=== PATIENT | female | born 1965 | race American Indian/Alaskan Native ===

== ENCOUNTER 2017-06-07 17:33 | Emergency (ER) | payer OTHER ==
[2017-06-07 17:39] VITALS: BMI 24.7
[2017-06-07 17:42] VITALS: BP 119/81; PULSE 65; TEMP 98.5
[2017-06-07] MEDS ORDERED: Amoxicillin-Clav 875-125 mg Tab PO STA (18:07)
--- NOTE | 2017-06-07 18:18 | ED PDOC ---
Arrival/HPI - General Chief Complaint: ENT Problem Time Seen by Provider: 06/07/17 18:06 Historian: Patient - History of Present Illness Narrative History of Present Illness (Text): 06/07/17 19:59 51-year-old female presents today with a 5 day history of left-sided earache sinus congestion and left-sided frontal headache and nasal congestion. Patient states she tried to go the urgent care center today but they stated that they did not have a doctor on staff so they sent her to the emergency room. Patient complaining of pressure sensation to the floor had greatest on the left side with sinus congestion. Patient states that she's been taking Nasonex without improvement. Patient states this happens to her every year. Patient denies headache or dizziness. No chest pain or shortness of breath. Patient complaining of subjective fever. No other complaints Time/Duration: Other (5 days) Past Medical History - Provider Review Nursing Documentation Reviewed: Yes - Travel History Have you recently traveled outside [place] w/in the past 3 mons?: No - Infectious Disease Hx of Infectious Diseases: None - Tetanus Immunization Tetanus Immunization: Unknown - Past Medical History Past Medical History: No Previous - Cardiac Hx Cardiac Disorders: No - Pulmonary Hx Respiratory Disorders: Yes Hx Asthma: Yes - Neurological Hx Neurological Disorder: No - HEENT Hx HEENT Disorder: No - Renal Hx Renal Disorder: No - Endocrine/Metabolic Hx Endocrine Disorders: No - Hematological/Oncological Hx Blood Disorders: No - Integumentary Hx Dermatological Disorder: No - Musculoskeletal/Rheumatological Hx Musculoskeletal Disorders: No - Gastrointestinal Hx Gastrointestinal Disorders: No - Genitourinary/Gynecological Hx Genitourinary Disorders: No - Psychiatric Hx Psychophysiologic Disorder: No Hx Depression: No Hx Emotional Abuse: No Hx Physical Abuse: No Hx Substance Use: No - Past Surgical History Past Surgical History: No Previous - Surgical History Hx Abdominal Aortic Aneurysm Repair: No Hx Amputation: No Hx Angiogram: No Hx Angioplasty: No Hx Appendectomy: No Hx Arteriovenous Shunt: No Hx Arthroscopy: No Hx Bile Duct Stent: No Hx Breast Biopsy: No Hx Cataract Extraction: No Hx Cardiac Catheterization: No Hx Carotid Endarterectomy: No Hx Section: No Hx Cholecystectomy: No Hx Coronary Artery Bypass Graft: No Hx Coronary Stent: No Hx Dilation and Curettage: No Hx Eye Surgery: No Hx Femoral-Popliteal Bypass Graft: No Hx Gastric Bypass Surgery: No Hx Hysterectomy: No Hx Joint Replacement: No Hx Kidney Transplant: No Hx Liver Transplant: No Hx Mastectomy: No Hx Musculoskeletal Surgery: No Hx Open Heart Surgery: No Hx Open Reduction Internal Fixation: No Hx Orthopedic Surgery: No Hx Parathyroidectomy: No Hx Penile Implant: No Hx Pulmonary Surgery: No Hx Splenectomy: No Hx Thyroidectomy: No Hx Tonsillectomy: No Hx Tubal Ligation: No Hx Valve Replacement: No Hx Vascular Surgery: No Hx Vascular Access Device: No - Anesthesia Hx Anesthesia: No - Suicidal Assessment Feels Threatened In Home Enviroment: No Family/Social History - Physician Review Nursing Documentation Reviewed: Yes Family/Social History: Unknown Family HX Smoking Status: Never Smoked Hx Alcohol Use: No Hx Substance Use: No Allergies/Home Meds Allergies/Adverse Reactions: Allergies Iodine and Iodide Containing Produc Allergy (Verified 07/21/16 17:10) ANAPHYLAXIS peanut Allergy (Verified 07/21/16 17:10) ANAPHYLAXIS strawberry Allergy (Verified 07/21/16 17:10) ANAPHYLAXIS seafood Allergy (Uncoded 07/21/16 17:10) ANAPHYLAXIS Home Medications: Home Meds Medication Instructions Recorded Confirmed Albuterol Sulfate [Proventil Hfa] 1 inh INH PRN PRN 02/17/16 06/07/17 Review of Systems - Review of Systems Constitutional: Fevers. absent: Fatigue ENT: Sore Throat, Sinus Congestion Respiratory: absent: SOB, Cough Cardiovascular: absent: Chest Pain, Palpitations Gastrointestinal: absent: Abdominal Pain, Nausea, Vomiting Musculoskeletal: absent: Arthralgias, Back Pain, Neck Pain Neurological: Headache (left sided frontal headache). absent: Dizziness Physical Exam Vital Signs Reviewed: Yes Vital Signs Temp Pulse Resp BP Pulse Ox 06/07/17 18:21 19 99 06/07/17 17:42 98.5 F 65 18 119/81 98 Temperature: Afebrile Blood Pressure: Normal Pulse: Regular Respiratory Rate: Normal Appearance: Positive for: Well-Appearing, Non-Toxic, Comfortable Pain Distress: None Mental Status: Positive for: Alert and Oriented X 3 - Systems Exam Head: Present: Atraumatic, Tenderness (+ ttp over left frontal sinus) Conjunctiva: Present: Normal Ears: Present: Other (left ear; + cerumen impaction) Mouth: Present: Moist Mucous Membranes Pharnyx: Present: Normal. No: ERYTHEMA, EXUDATE, TONSILS ENLARGED Nose (External): Present: Atraumatic Nose (Internal): Present: Engorged, Clear Mucous Neck: Present: Normal Range of Motion, Trachea Midline. No: Meningeal Signs Respiratory/Chest: Present: Clear to Auscultation, Good Air Exchange. No: Respiratory Distress, Accessory Muscle Use Cardiovascular: Present: Regular Rate and Rhythm, Normal S1, S2. No: Murmurs Neurological: Present: GCS=15 Skin: Present: Warm, Dry, Normal Color. No: Rashes Psychiatric: Present: Alert, Oriented x 3 Medical Decision Making ED Course and Treatment: 06/07/17 20:01 Patient is nontoxic well appearing in no distress. Vital signs are stable Augmentin by mouth will treat patient with augmentin for sinusitis; pt to f/u with ENT specialist. I advised follow up with primary care physician within the next 2 days, advised to increase fluids take medications as prescribed and return if symptoms worsen persist or if new symptoms develop Patient verbalizes understanding of discharge instructions and need for immediate followup. IMPRESSION; sinusitis Motrin every 6 hours as needed for pain/fever reduction Increase fluids Augmentin 1 tablet twice daily 10 days Continue Nasonex as prescribed. Follow up primary care physician within the next 2 days Follow up with the ENT specialist within the next 2 days. Return if symptoms worsen persist or if the symptoms develop - Medication Orders Current Medication Orders: Discontinued Medications Amoxicillin/Clavulanate Potassium (Augmentin 875 Mg-125 Mg Tab) 1 tab PO STAT STA PRN Reason: Protocol Stop: 06/07/17 18:08 Last Admin: 06/07/17 18:20 Dose: 1 tab Disposition/Present on Arrival - Present on Arrival Any Indicators Present on Arrival: No History of DVT/PE: No History of Uncontrolled Diabetes: No Urinary Catheter: No History of Decub. Ulcer: No History Surgical Site Infection Following: None - Disposition Have Diagnosis and Disposition been Completed?: Yes Diagnosis: Sinusitis Disposition: HOME/ ROUTINE Disposition Time: 18:07 Patient Plan: Discharge Condition: GOOD Discharge Instructions (ExitCare): Sinusitis (ED) Additional Instructions: Motrin every 6 hours as needed for pain/fever reduction Increase fluids Augmentin 1 tablet twice daily 10 days Continue Nasonex as prescribed. Follow up primary care physician within the next 2 days Follow up with the ENT specialist within the next 2 days. Return if symptoms worsen persist or if the symptoms develop Prescriptions: Amoxicillin/Clavulanate [Augmentin 875 MG-125 MG] 1 tab PO BID #20 tab Referrals: Jose F Ledezma DO [[facility]] - Follow up with primary Po Mccormick DO [Primary Care Provider] - Follow up with primary Forms: [employer] (Maori)
[2017-06-07 18:21] VITALS: RESP 19; O2SAT 99
== END 2017-06-07 18:21 | disposition home or self-care (01) ==
LOC: ED 17:33
DX: J32.9 Chronic sinusitis, unspecified (principal)

== ENCOUNTER 2017-06-28 17:25 | Emergency (ER) | payer OTHER ==
[2017-06-28 17:25] VITALS: BMI 24.7
[2017-06-28 17:34] VITALS: TEMP 98.9; O2SAT 100
--- NOTE | 2017-06-28 18:24 | ED PDOC ---
Arrival/HPI - General Chief Complaint: Headache Time Seen by Provider: 06/28/17 17:39 Historian: Patient - History of Present Illness Narrative History of Present Illness (Text): 06/28/17 18:26 A 51 year old female, whose past medical history includes asthma, presents to the emergency department complaining of headache for the past 5 days after she was at the grocery store and hit her forehead on a "bread box." Denies any loss of consciousness. Patient reports to taking Motrin and applying ice to forehead , but headache still persists. Notes she feels pressure near her eyes. Symptoms feel similar to previous sinusitis symptoms. Notes some dizziness but denies any neck pain or any other complaints at this time. PMD: Dr. Mccormick Time/Duration: < week Symptom Onset: Sudden Symptom Course: Unchanged Activities at Onset: Rest Past Medical History - Provider Review Nursing Documentation Reviewed: Yes - Infectious Disease Hx of Infectious Diseases: None - Tetanus Immunization Tetanus Immunization: Unknown - Reproductive Menopause: Yes - Past Medical History Past Medical History: No Previous - Cardiac Hx Cardiac Disorders: No - Pulmonary Hx Respiratory Disorders: Yes Hx Asthma: Yes - Neurological Hx Neurological Disorder: No - HEENT Hx HEENT Disorder: No - Renal Hx Renal Disorder: No - Endocrine/Metabolic Hx Endocrine Disorders: No - Hematological/Oncological Hx Blood Disorders: No - Integumentary Hx Dermatological Disorder: No - Musculoskeletal/Rheumatological Hx Musculoskeletal Disorders: No - Gastrointestinal Hx Gastrointestinal Disorders: No - Genitourinary/Gynecological Hx Genitourinary Disorders: No - Psychiatric Hx Psychophysiologic Disorder: No Hx Depression: No Hx Emotional Abuse: No Hx Physical Abuse: No Hx Substance Use: No - Past Surgical History Past Surgical History: No Previous - Surgical History Hx Abdominal Aortic Aneurysm Repair: No Hx Amputation: No Hx Angiogram: No Hx Angioplasty: No Hx Appendectomy: No Hx Arteriovenous Shunt: No Hx Arthroscopy: No Hx Bile Duct Stent: No Hx Breast Biopsy: No Hx Cataract Extraction: No Hx Cardiac Catheterization: No Hx Carotid Endarterectomy: No Hx Section: No Hx Cholecystectomy: No Hx Coronary Artery Bypass Graft: No Hx Coronary Stent: No Hx Dilation and Curettage: No Hx Eye Surgery: No Hx Femoral-Popliteal Bypass Graft: No Hx Gastric Bypass Surgery: No Hx Hysterectomy: No Hx Joint Replacement: No Hx Kidney Transplant: No Hx Liver Transplant: No Hx Mastectomy: No Hx Musculoskeletal Surgery: No Hx Open Heart Surgery: No Hx Open Reduction Internal Fixation: No Hx Orthopedic Surgery: No Hx Parathyroidectomy: No Hx Penile Implant: No Hx Pulmonary Surgery: No Hx Splenectomy: No Hx Thyroidectomy: No Hx Tonsillectomy: No Hx Tubal Ligation: No Hx Valve Replacement: No Hx Vascular Surgery: No Hx Vascular Access Device: No - Anesthesia Hx Anesthesia: No - Suicidal Assessment Feels Threatened In Home Enviroment: No Family/Social History - Physician Review Nursing Documentation Reviewed: Yes Family/Social History: Other (non-contributory) Smoking Status: Never Smoked Hx Alcohol Use: No Hx Substance Use: No Allergies/Home Meds Allergies/Adverse Reactions: Allergies Iodine and Iodide Containing Produc Allergy (Verified 07/21/16 17:10) ANAPHYLAXIS peanut Allergy (Verified 07/21/16 17:10) ANAPHYLAXIS strawberry Allergy (Verified 07/21/16 17:10) ANAPHYLAXIS seafood Allergy (Uncoded 07/21/16 17:10) ANAPHYLAXIS Home Medications: Home Meds Medication Instructions Recorded Confirmed Albuterol Sulfate [Proventil Hfa] 1 inh INH PRN PRN 02/17/16 06/28/17 Review of Systems - Physician Review All systems were reviewed & negative as marked: Yes - Review of Systems Musculoskeletal: absent: Neck Pain Neurological: Headache Physical Exam Vital Signs Reviewed: Yes Vital Signs Temp Pulse Resp BP Pulse Ox 06/28/17 19:10 77 17 116/72 100 06/28/17 17:33 98.9 F 88 16 140/62 100 Appearance: Positive for: Well-Appearing, Non-Toxic, Comfortable Pain Distress: None Mental Status: Positive for: Alert and Oriented X 3 - Systems Exam Head: Present: Normocephalic, Tenderness (over forehead) Pupils: Present: PERRL Extroacular Muscles: Present: EOMI Conjunctiva: Present: Normal Mouth: Present: Moist Mucous Membranes Neck: Present: Normal Range of Motion. No: MIDLINE TENDERNESS, Paraspinal Tenderness Respiratory/Chest: Present: Clear to Auscultation, Good Air Exchange. No: Respiratory Distress, Accessory Muscle Use Cardiovascular: Present: Regular Rate and Rhythm, Normal S1, S2. No: Murmurs Abdomen: Present: Normal Bowel Sounds. No: Tenderness, Distention, Peritoneal Signs Back: Present: Normal Inspection Upper Extremity: Present: Normal Inspection. No: Cyanosis, Edema Lower Extremity: Present: Normal Inspection. No: Edema Neurological: Present: GCS=15, CN II-XII Intact, Speech Normal, Normal Cerebellar Funct, Other (strength and sensations intact) Skin: Present: Warm, Dry, Normal Color. No: Rashes Psychiatric: Present: Alert, Oriented x 3, Normal Insight, Normal Concentration Medical Decision Making ED Course and Treatment: 06/28/17 18:31 CT HEAD WITHOUT CONTRAST Creator : Jenny Olvera MD FINDINGS: Streak artifact obscures evaluation of the skullbase. HEMORRHAGE: No intracranial hemorrhage. BRAIN: No mass effect or edema. Alatorre-white matter differentiation appears intact. Please note that MRI with diffusion imaging is more sensitive in the detection of acute ischemic event. VENTRICLES: No hydrocephalus. CALVARIUM: Unremarkable. PARANASAL SINUSES: Unremarkable as visualized. No significant inflammatory changes. MASTOID AIR CELLS: Unremarkable as visualized. No inflammatory changes. IMPRESSION: No acute intracranial pathology identified. Disc results w pt as well as plan for f/u and rtr. - RAD Interpretation Radiology Orders: 06/28/17 17:45 HEAD W/O CONTRAST [CT] Stat - Medication Orders Current Medication Orders: Discontinued Medications Acetaminophen (Tylenol 325mg Tab) 975 mg PO STAT STA Stop: 06/28/17 17:45 Last Admin: 06/28/17 17:54 Dose: 975 mg MAR Pain/Vitals Document 06/28/17 17:54 [facility] (Rec: 06/28/17 17:54 [facility] [id number]) Pain Reassessment Is This A Pain ReAssessment? No Sleep Is patient sleeping during reassessment? No Presence of Pain Presence of Pain Yes Pain Scale Used Pain Scale Used Numeric Location Pain Location Body Diet Assistant Description Constant Intensity 5 Scale Used Numeric Ibuprofen (Motrin Tab) 400 mg PO STAT STA Stop: 06/28/17 17:45 Last Admin: 06/28/17 17:55 Dose: - Scribe Statement The provider has reviewed the documentation as recorded by the Rudy Edgar Provider Scribe Attestation: All medical record entries made by the Scribe were at my direction and personally dictated by me. I have reviewed the chart and agree that the record accurately reflects my personal performance of the history, physical exam, medical decision making, and the department course for this patient. I have also personally directed, reviewed, and agree with the discharge instructions and disposition. Disposition/Present on Arrival - Present on Arrival Any Indicators Present on Arrival: No History of DVT/PE: No History of Uncontrolled Diabetes: No Urinary Catheter: No History of Decub. Ulcer: No History Surgical Site Infection Following: None - Disposition Have Diagnosis and Disposition been Completed?: Yes Diagnosis: Head contusion Disposition: HOME/ ROUTINE Disposition Time: 18:45 Condition: STABLE Additional Instructions: Please follow up with your doctor. Return to the ER for any worsening symptoms, severe headache, confusion, or for any other concerns. Referrals: Po Mccormick DO [Primary Care Provider] - Follow up with primary Forms: [employer] (Faroese)
--- NOTE | 2017-06-28 18:29 | CT ---
PROCEDURE: CT HEAD WITHOUT CONTRAST. HISTORY: head injury, headache COMPARISON: None available. TECHNIQUE: Axial computed tomography images were obtained through the head/brain without intravenous contrast. Radiation dose: Total exam DLP = 775.01 mGy-cm. This CT exam was performed using one or more of the following dose reduction techniques: Automated exposure control, adjustment of the mA and/or kV according to patient size, and/or use of iterative reconstruction technique. FINDINGS: Streak artifact obscures evaluation of the skullbase. HEMORRHAGE: No intracranial hemorrhage. BRAIN: No mass effect or edema. Alatorre-white matter differentiation appears intact. Please note that MRI with diffusion imaging is more sensitive in the detection of acute ischemic event. VENTRICLES: No hydrocephalus. CALVARIUM: Unremarkable. PARANASAL SINUSES: Unremarkable as visualized. No significant inflammatory changes. MASTOID AIR CELLS: Unremarkable as visualized. No inflammatory changes. OTHER FINDINGS: None. IMPRESSION: No acute intracranial pathology identified.
[2017-06-28 19:11] VITALS: BP 116/72; PULSE 77; RESP 17
== END 2017-06-28 19:12 | disposition home or self-care (01) ==
LOC: ED 17:25
DX: S00.93XA Contusion of unspecified part of head, initial encounter (principal); W22.8XXA Striking against or struck by other objects, initial encounter; Y92.512 Supermarket, store or market as the place of occurrence of the external cause

== ENCOUNTER 2017-10-07 10:10 | Emergency (ER) | payer OTHER ==
[2017-10-07 10:14] VITALS: BMI 24.3
[2017-10-07 10:18] VITALS: RESP 18
--- NOTE | 2017-10-07 10:52 | ED PDOC ---
Arrival/HPI - General Chief Complaint: GI Problem Time Seen by Provider: 10/07/17 10:23 Historian: Patient - History of Present Illness Narrative History of Present Illness (Text): 10/07/17 10:30 Alexus Land is a 52 Year old female, whose past medical history includes asthma and fibroids, who presents to the Emergency department complaining of left upper quadrant pain since one week. Patient reports going to her PMD who prescribed her antibiotic for UTI. Patient states she stopped taking the medication because she did not tolerate it well and informed her PMD about it. Additionally, she developed chills, nausea, vomiting, and diaphoresis. She also notes her abdominal pain symptoms are similar to her fibroid complaint. No other complaints were made. Time/Duration: 1 week Symptom Onset: Gradual Symptom Course: Worsening Context: Home Past Medical History - Provider Review Nursing Documentation Reviewed: Yes - Infectious Disease Hx of Infectious Diseases: None - Tetanus Immunization Tetanus Immunization: Unknown - Past Medical History Past Medical History: No Previous - Cardiac Hx Cardiac Disorders: No - Pulmonary Hx Respiratory Disorders: Yes Hx Asthma: Yes - Neurological Hx Neurological Disorder: No - HEENT Hx HEENT Disorder: No - Renal Hx Renal Disorder: No - Endocrine/Metabolic Hx Endocrine Disorders: No - Hematological/Oncological Hx Blood Disorders: No - Integumentary Hx Dermatological Disorder: No - Musculoskeletal/Rheumatological Hx Musculoskeletal Disorders: No - Gastrointestinal Hx Gastrointestinal Disorders: No - Genitourinary/Gynecological Hx Genitourinary Disorders: No - Psychiatric Hx Psychophysiologic Disorder: No Hx Depression: No Hx Emotional Abuse: No Hx Physical Abuse: No Hx Substance Use: No - Past Surgical History Past Surgical History: No Previous - Surgical History Hx Abdominal Aortic Aneurysm Repair: No Hx Amputation: No Hx Angiogram: No Hx Angioplasty: No Hx Appendectomy: No Hx Arteriovenous Shunt: No Hx Arthroscopy: No Hx Bile Duct Stent: No Hx Breast Biopsy: No Hx Cataract Extraction: No Hx Cardiac Catheterization: No Hx Carotid Endarterectomy: No Hx Section: No Hx Cholecystectomy: No Hx Coronary Artery Bypass Graft: No Hx Coronary Stent: No Hx Dilation and Curettage: No Hx Eye Surgery: No Hx Femoral-Popliteal Bypass Graft: No Hx Gastric Bypass Surgery: No Hx Hysterectomy: No Hx Joint Replacement: No Hx Kidney Transplant: No Hx Liver Transplant: No Hx Mastectomy: No Hx Musculoskeletal Surgery: No Hx Open Heart Surgery: No Hx Open Reduction Internal Fixation: No Hx Orthopedic Surgery: No Hx Parathyroidectomy: No Hx Penile Implant: No Hx Pulmonary Surgery: No Hx Splenectomy: No Hx Thyroidectomy: No Hx Tonsillectomy: No Hx Tubal Ligation: No Hx Valve Replacement: No Hx Vascular Surgery: No Hx Vascular Access Device: No - Anesthesia Hx Anesthesia: No - Suicidal Assessment Feels Threatened In Home Enviroment: No Family/Social History - Physician Review Nursing Documentation Reviewed: Yes Family/Social History: Unknown Family HX Smoking Status: Never Smoked Hx Alcohol Use: No Hx Substance Use: No Allergies/Home Meds Allergies/Adverse Reactions: Allergies Iodine and Iodide Containing Produc Allergy (Verified 07/21/16 17:10) ANAPHYLAXIS peanut Allergy (Verified 07/21/16 17:10) ANAPHYLAXIS strawberry Allergy (Verified 07/21/16 17:10) ANAPHYLAXIS seafood Allergy (Uncoded 07/21/16 17:10) ANAPHYLAXIS Home Medications: Home Meds Medication Instructions Recorded Confirmed Albuterol Sulfate [Proventil Hfa] 1 inh INH PRN PRN 02/17/16 10/07/17 Review of Systems - Physician Review All systems were reviewed & negative as marked: Yes - Review of Systems Constitutional: absent: Fevers Respiratory: absent: SOB Gastrointestinal: Abdominal Pain (left upper quadrant ), Nausea, Vomiting Endocrine: Diaphoresis Physical Exam Vital Signs Reviewed: Yes Vital Signs Temp Pulse Resp BP Pulse Ox 10/07/17 12:19 74 18 136/76 100 10/07/17 10:17 97.8 F 64 18 121/81 100 Temperature: Afebrile Blood Pressure: Normal Pulse: Regular Respiratory Rate: Normal Appearance: Positive for: Well-Appearing, Non-Toxic, Comfortable Pain Distress: None Mental Status: Positive for: Alert and Oriented X 3 - Systems Exam Head: Present: Atraumatic, Normocephalic Pupils: Present: PERRL Extroacular Muscles: Present: EOMI Conjunctiva: Present: Normal Mouth: Present: Moist Mucous Membranes Neck: Present: Normal Range of Motion Respiratory/Chest: Present: Clear to Auscultation, Good Air Exchange. No: Respiratory Distress, Accessory Muscle Use, Wheezes Cardiovascular: Present: Regular Rate and Rhythm, Normal S1, S2. No: Murmurs Abdomen: Present: Normal Bowel Sounds, Other (right sided pain no distention). No: Distention, Peritoneal Signs Neurological: Present: GCS=15, CN II-XII Intact, Speech Normal Skin: Present: Warm, Dry, Normal Color. No: Rashes Psychiatric: Present: Alert, Oriented x 3, Normal Insight, Normal Concentration Medical Decision Making ED Course and Treatment: 10/07/17 11:10 Impression: 52 Year old male with right sided abdominal pain with no distention. Plan: -- Reassess and disposition Progress Notes: - Lab Interpretations Lab Results: 10/07/17 11:45 10/07/17 11:45 Lab Results 10/07/17 11:45: Sodium 140, Potassium 4.4, Chloride 103, Carbon Dioxide 29, Anion Gap 13, BUN 13, Creatinine 0.8, Est GFR ( Amer) > 60, Est GFR (Non- Af Amer) > 60, Random Glucose 92, Calcium 9.3, Total Bilirubin 0.4, AST 28, ALT 23, Alkaline Phosphatase 75, Total Protein 7.4, Albumin 3.9, Globulin 3.5, Albumin/Globulin Ratio 1.1 10/07/17 11:45: WBC 5.0, RBC 4.62, Hgb 13.9, Hct 41.7, MCV 90.3, MCH 30.1, MCHC 33.3, RDW 13.9, Plt Count 231, MPV 10.2, Gran % 56.1, Lymph % (Auto) 29.9, Sunflower % (Auto) 10.0 H, Eos % (Auto) 3.2, Baso % (Auto) 0.8, Gran # 2.79, Lymph # (Auto ) 1.5, Sunflower # (Auto) 0.5, Eos # (Auto) 0.2, Baso # (Auto) 0.04 - Medication Orders Current Medication Orders: Discontinued Medications Sodium Chloride (Sodium Chloride 0.9%) 500 mls @ 999 mls/hr IV .Q31M STA Stop: 10/07/17 12:01 Last Admin: 10/07/17 12:06 Dose: 999 mls/hr eMAR Start Stop Document 10/07/17 12:06 [facility] (Rec: 10/07/17 12:06 [facility] [id number]) Intravenous Solution Start Date 10/07/17 Start Time 12:06 End Date 10/07/17 End time 12:36 Total Infusion Time 30 Ondansetron HCl (Zofran Inj) 4 mg IVP STAT STA Stop: 10/07/17 11:33 Last Admin: 10/07/17 12:03 Dose: 4 mg IVP Administration Document 10/07/17 12:03 [facility] (Rec: 10/07/17 12:03 [facility] [id number]) Charges for Administration # of IVP Administrations 1 - Scribe Statement The provider has reviewed the documentation as recorded by the Lulaibe Susanna Plata Provider Scribe Attestation: All medical record entries made by the Scribe were at my direction and personally dictated by me. I have reviewed the chart and agree that the record accurately reflects my personal performance of the history, physical exam, medical decision making, and the department course for this patient. I have also personally directed, reviewed, and agree with the discharge instructions and disposition. Disposition/Present on Arrival - Present on Arrival Any Indicators Present on Arrival: No History of DVT/PE: No History of Uncontrolled Diabetes: No Urinary Catheter: No History of Decub. Ulcer: No History Surgical Site Infection Following: None - Disposition Have Diagnosis and Disposition been Completed?: Yes Diagnosis: Nausea & vomiting Disposition: HOME/ ROUTINE Disposition Time: 13:20 Patient Plan: Discharge Condition: IMPROVED Prescriptions: Ondansetron [Zofran] 4 mg PO Q8H PRN #15 tab PRN Reason: Nausea/Vomiting Referrals: Po Mccormick DO [Primary Care Provider] - Follow up with primary Forms: [employer] (Serbian)
[2017-10-07] MEDS ORDERED: Sodium Chloride 0.9% 500 ML IV STA (11:31)
[2017-10-07 12:02] LABS: BASO # 0.04 K/mm3 (0.0-2.0); BASO % 0.8 % (0.0-3.0); EOS # 0.2 (0.0-0.7); EOS % 3.2 % (1.5-5.0); GRAN # 2.79 (1.4-6.5); GRAN % 56.1 % (50.0-68.0); HEMOGLOBIN 13.9 g/dL (12.0-16.0); LYMPH # 1.5 (1.2-3.4); LYMPH % 29.9 % (22.0-35.0); MEAN CELL VOLUME 90.3 fl (80.0-105.0); MEAN CORPUSCULAR HEMOGLOBIN 30.1 pg (25.0-35.0); MEAN CORPUSCULAR HGB CONC 33.3 g/dl (31.0-37.0); MEAN PLATELET VOLUME 10.2 fl (7.0-11.0); MONO # 0.5 (0.1-0.6); RBC 4.62 10^6/uL (3.5-6.1); RED CELL DISTRIBUTION WIDTH 13.9 % (11.5-14.5)
[2017-10-07 12:15] LABS: ALB/GLOB RATIO 1.1 (1.1-1.8); ALBUMIN 3.9 g/dL (3.0-4.8); ALT/SGPT 23 U/L (7-56); AST/SGOT 28 U/L (14-36); BLOOD UREA NITROGEN 13 mg/dL (7-21); CALCIUM 9.3 mg/dL (8.4-10.5); GFR AFRICAN-AMERICAN > 60; GFR NON-AFRICAN AMERICAN > 60
[2017-10-07 13:34] VITALS: BP 130/71; PULSE 76; TEMP 97.9; O2SAT 98
== END 2017-10-07 13:45 | disposition home or self-care (01) ==
LOC: ED 10:10
DX: R11.2 Nausea with vomiting, unspecified (principal)
CPT/HCPCS: 80053; 85025; 96374; 99282; J2405; J7040

== ENCOUNTER 2018-10-19 16:05 | Outpatient (CLI) | payer OTHER | END 2018-10-19 16:06 | disposition home or self-care (01) | LOC: RAD 16:06 ==

== ENCOUNTER 2018-10-22 07:41 | Outpatient (CLI) | payer OTHER | END 2018-10-22 07:42 | disposition home or self-care (01) | LOC: RAD 07:41 ==

== ENCOUNTER 2018-10-24 08:45 | Outpatient (CLI) | payer OTHER | END 2018-10-24 08:46 | disposition home or self-care (01) | LOC: RAD 08:45 ==